=== PATIENT | male | born 1985 | race Caucasian/White ===

== ENCOUNTER 2021-08-13 22:20 | Emergency (ER) | payer SELFPAY ==
[~2021-08-13] VITALS: Ht 162.6 cm; Wt 115.7 kg
[~2021-08-13 22:20] MED LIST: ROB PO
[2021-08-13 23:08] VITALS: BP 163/109
[2021-08-13] MEDS ORDERED: ACETAMINOPHEN EXTRA STRENGTH 500 MG TAB PO ONE (23:20)
--- NOTE | 2021-08-14 00:24 | NUR ---
PT TAKEN TO BED 1
[2021-08-14] MEDS ORDERED: REGENERON ANTIBODY ER ORDER 1 EA MISC MC ONE (01:05)
--- NOTE | 2021-08-14 01:08 | NUR ---
Called [facility] Pharmacist for regeneron, stated that he will come to get regeneron
[2021-08-14] MEDS ORDERED: NON-FORMULARY ITEM 1 EA in NACL 0.9% 100 ML IV ONE (02:15)
[2021-08-14] MEDS ORDERED: NAPR-54 PO (03:18)
[2021-08-14] MEDS ORDERED: ROBAC PO (03:18)
[2021-08-14] MEDS ORDERED: AZIT250T4 PO (03:18)
[2021-08-14 03:26] VITALS: BP 125/86
--- NOTE | 2021-08-14 03:26 | NUR ---
CLEARED FOR DISCARGE AT THIS TIME. NO FURTHER QUESTIONS OR CONCERNS FOLLOWING DISHCARGE TEACHING. ADVISED TO FOLLOW UP WITH PCP AND RETURN IF CONDITION WORSENS.
== END 2021-08-14 03:26 | disposition home or self-care (01) ==
LOC: MED 22:20
DX: U07.1 COVID-19 (principal); J12.82 Pneumonia due to coronavirus disease 2019
CPT/HCPCS: 71045; 96365; 99284

== ENCOUNTER 2022-01-05 15:57 | Emergency (ER) | payer SELFPAY ==
[~2022-01-05] VITALS: Ht 162.6 cm; Wt 116.1 kg
[~2022-01-05 15:57] MED LIST changes: +AZIT250T4 PO; +NAPR-54 PO; +ROBAC PO
[2022-01-05 16:20] VITALS: BP 151/93
--- NOTE | 2022-01-05 16:52 | NUR ---
PT AMB TO BED 8
--- NOTE | 2022-01-05 16:57 | NUR ---
DR MAY AT BEDSIDE EVALUATING PATIENT.
[2022-01-05] MEDS ORDERED: KETOROLAC 30 MG/ML VIAL IM ONE (17:05)
[2022-01-05] MEDS ORDERED: ACET-8386 PO ×2 (17:10→18:35)
[2022-01-05] MEDS ORDERED: IBUP-2213 PO (17:10)
--- NOTE | 2022-01-05 17:19 | NUR ---
36 Y/O MALE C/O 04/16 TOOTH PAIN AND HEADACHE X YESTERDAY. PATIENT ALSO HAS FACE SWELLING X TODAY. PATIENT DENIES EATING ANYTHING HARD OR INJURY. MEDICAL HISTORY: DENIES NKDA
[2022-01-05 17:29] VITALS: BP 151/93
--- NOTE | 2022-01-05 17:29 | NUR ---
Patient discharged with v/s stable. Written and verbal after care instructions given and explained. Patient alert, oriented and verbalized understanding of instructions. Ambulatory with steady gait. All questions addressed prior to discharge. ID band removed. Patient advised to follow up with PMD. Rx of ibuprofen, hydrocodone (sent) given. Patient educated on indication of medication including possible reaction and side effects. Opportunity to ask questions provided and answered. work not given
== END 2022-01-05 17:29 | disposition home or self-care (01) ==
LOC: MED 15:57
DX: K08.89 Other specified disorders of teeth and supporting structures (principal); Z79.1 Long term (current) use of non-steroidal anti-inflammatories (NSAID); Z79.891 Long term (current) use of opiate analgesic; Z79.899 Other long term (current) drug therapy; Z79.2 Long term (current) use of antibiotics
CPT/HCPCS: 96372; 99283; J1885

== ENCOUNTER 2022-02-16 17:39 | Emergency (ER) | payer MEDICAID ==
[~2022-02-16] VITALS: Ht 162.6 cm; Wt 115.2 kg
[~2022-02-16 17:39] MED LIST changes: +ACET-8386 PO; +IBUP-2213 PO
[2022-02-16 17:53] VITALS: BP 156/73
[2022-02-16] MEDS ORDERED: ACETAMINOPHEN 325 MG TAB PO ONE (18:15)
[2022-02-16 19:17] VITALS: BP 137/68
== END 2022-02-16 19:17 | disposition home or self-care (01) ==
LOC: MED 17:39
DX: M25.571 Pain in right ankle and joints of right foot (principal); Z79.891 Long term (current) use of opiate analgesic; Z79.1 Long term (current) use of non-steroidal anti-inflammatories (NSAID); Z79.2 Long term (current) use of antibiotics; Z79.899 Other long term (current) drug therapy
CPT/HCPCS: 73610; 99283; Q0092

== ENCOUNTER 2023-04-18 18:21 | Emergency (ER) | payer MEDICAID ==
[~2023-04-18] VITALS: Ht 162.6 cm; Wt 108.0 kg
[~2023-04-18 18:21] MED LIST changes: -ACET-8386 PO; +ACET-8905 PO
[2023-04-18 18:33] VITALS: BP 157/93; PULSE 87; RESP 16; TEMP 97.3; O2SAT 94
[2023-04-18] MEDS ORDERED: KETOROLAC 30 MG/ML VIAL IM ONE (19:05)
[2023-04-18] MEDS ORDERED: IBUP-2213 PO (19:07)
[2023-04-18] MEDS ORDERED: AMOX500C25 PO (19:07)
[2023-04-18] MEDS ORDERED: ACET-10509 PO (19:07)
[2023-04-18 19:16] VITALS: BP 157/93; PULSE 87; RESP 16; TEMP 97.3; O2SAT 94
== END 2023-04-18 19:16 | disposition home or self-care (01) ==
LOC: MED 18:21
DX: K08.89 Other specified disorders of teeth and supporting structures (principal); Z79.899 Other long term (current) drug therapy
CPT/HCPCS: 96372; 99283; J1885